=== PATIENT | female | born 1945 | race Caucasian/White ===

== ENCOUNTER → 2017-05-29 | Outpatient (CLI) | payer MEDICARE ==
[~2017-05-29] MED LIST: ALBU8.5H IH; ALPR-429 PO; AMLO2.5T74 PO; ASPI81TA94 PO; BUSP7.5T7 PO; CETI10CA8 PO; DICY20TA70 PO; DIPH-740 PO; EPIN0.3P15 IM; ESCI20TA8 PO; ESCI5TAB3 PO; FLUT50DI3 IH; IPRN ENA; LEVO50TA80 PO; LEVO50TA86 PO; MELO-207 PO; MONT10TA PO; OXYM-1 ENA; PANT20TA27 PO; PANT40TA65 PO; PRAV40TA78 PO; RANI-324 PO; TRAZ-156 PO; TRIA10.8 NS; VITA-175 PO; [UNRECOGNIZED DRUG - REMARK]
== END ==
LOC: LAB 15:15
PROVIDERS: ATTEND Surgery
DX: C44.519 Basal cell carcinoma of skin of other part of trunk (principal)
CPT/HCPCS: 88305

== ENCOUNTER → 2017-06-20 | Outpatient (CLI) | payer MEDICARE | LOC: LAB 16:46 | PROVIDERS: ATTEND Surgery | DX: C44.519 Basal cell carcinoma of skin of other part of trunk (principal) | CPT/HCPCS: 88305 ==

== ENCOUNTER → 2017-12-27 | Outpatient (CLI) | payer MEDICARE ==
[~2017-12-27] MED LIST changes: -AMLO2.5T74 PO; +AMLO2.5T76 PO; +BUPR-133 PO; +CHOL500016 PO; +MIRT7.5T2 PO; +PNEU0.5D3 IM; -RANI-324 PO; +RANI-366 PO; -TRAZ-156 PO; +TRAZ50TA34 PO; +TRIA10.8
--- NOTE | 2017-12-27 14:08 | RADIOLOGY IMAGING REPORT ---
FACILITY: [facility] PATIENT NAME: Soumya Neri : 1945 MR: [id number] V: [id number] EXAM DATE: ORDERING PHYSICIAN: TORI REES TECHNOLOGIST: Location: [facility] [place] Patient: Soumya Neri : 1945 Visit/Account:[id number] Date of Sevice: 12/27/2017 DEXA Scan Clinical history: Vitamin D deficiency. Comparison: None available. LUMBAR SPINE: The bone mineral density (BMD) measured from L1-L4 correlates with a Z-score -1.3 and a T-score of -3 .1 which is osteoporosis as defined by the World Health Organization. The corresponding risk of frac ture in the lumbar spine is 6-8 times increased compared with a young adult reference population. HIP: Bone mineral density (BMD) measured in the Left total hip region correlates with a Z-score -1.2 and a T-score of -2.8 which is osteoporosis as defined by the World Health Organization. The correspondin g risk of fracture in the hip is 8-12 times increased compared with a young adult reference populatio n. T score left femoral neck -2.9 Bone mineral density (BMD) measured in the Femoral Neck region measures 0.628 g/cm2. Impression: 1. Lumbar spine: Osteoporosis. 2. Left Hip: Osteoporosis. 3. Femoral Neck: Bone Mineral Density is 0.628 g/cm2 The next DEXA scan of this patient should include the following sites: L1-L4 and the left hip. FRAX? WHO Fracture Risk Assessment Tool link: <http://www.shef.ac.uk/FRAX/tool.jsp?locationValue=9> PLEASE NOTE: 1) The World Health Organization defines low BMD as follows: T-score Normal > -1 Osteopenia < -1 and > -2.5 Osteoporosis < -2.5 without fractures Established osteoporosis < -2.5 with fractures 2) In general, you may wish to consider: Diagnosis Treatment Follow-up DEXA Normal BMD Prevention 2-3 years Osteopenia Prevention/therapy 1-2 years Osteoporosis Therapy Yearly 3) Fracture risk estimated from the T-score is more accurate for vertebral fractures (often spontane ous) than for hip fractures. Report Dictated By: Katherine Patel MD at 12/27/2017 2:04 PM Report E-Signed By: Katherine Patel MD at 12/27/2017 2:06 PM WSN:[email or web address]
--- NOTE | 2017-12-28 10:16 | RADIOLOGY IMAGING REPORT ---
FACILITY: PATIENT NAME: LIDIA MAYES : [id number] MR: [id number] V: [id number] EXAM DATE: ORDERING PHYSICIAN: TORI REES TECHNOLOGIST: Bharti Caldwell PROCEDURE:BILATERAL DIGITAL SCREENING MAMMOGRAM WITH CAD ASSISTED INTERPRETATION & 3D TOMOSYNTHESIS COMPARISON:Prior mammograms dated 08/27/13, 08/20/12, 08/16/11 INDICATIONS:SCREENING FINDINGS: A small to moderate amount of fibroglandular tissue is seen throughout the breasts. The parenchymal pattern has remained stable allowing for difference in mammographic technique & patient positioning. There is no evidence of malignant appearing mass, malignant appearing calcification or other secondary sign of malignancy in either breast. DIAGNOSTIC CATEGORY 1--NEGATIVE. RECOMMENDATIONS: ROUTINE MAMMOGRAM AND CLINICAL EVALUATION. IMPRESSION: BIRADS 1: Negative. No significant abnormality is seen. Dictated by: Katherine Patel M.D. on 12/27/2017 at 16:13 Transcribed by: TORIBIO on 12/28/2017 at 8:28 Approved by: Katherine Patel M.D. on 12/28/2017 at 10:15 [facility]
== END ==
LOC: MAMO 00:31
PROVIDERS: ATTEND Family Medicine
DX: Z12.31 Encounter for screening mammogram for malignant neoplasm of breast (principal); M81.0 Age-related osteoporosis without current pathological fracture
CPT/HCPCS: 77063; 77067; 77080

== ENCOUNTER → 2018-10-25 | Outpatient (CLI) | payer MEDICARE ==
[~2018-10-25] MED LIST changes: -AMLO2.5T76 PO; +AMLO2.5T78 PO; +BARIUM SULFATE 340 GM POWD ONE; +LEVO5TAB28 PO; +PRAZ2CAP26 PO; +QUET25TA30 PO; -RANI-366 PO; +RANI-54 PO; -TRAZ50TA34 PO; +TRAZ50TA52 PO
--- NOTE | 2018-10-25 12:24 | RADIOLOGY IMAGING REPORT ---
FACILITY: [facility] PATIENT NAME: Soumya Neri : 1945 MR: [id number] V: [id number] EXAM DATE: ORDERING PHYSICIAN: TORI REES TECHNOLOGIST: Location: [facility] - [place] Patient: Soumya Neri : 1945 Visit/Account:[id number] Date of Sevice: 10/25/2018 Esophagram Indication: Gastroesophageal reflux. Left upper quadrant fullness. Comparison: None available Findings: The patient was given thin and thick barium to drink. Single column and air contrast views were obta ined of the esophagus. Fluoroscopy time measured 1.2 minutes with a dose area product of 140.70uGy*m 2. The esophagus is normal in caliber. No mucosal filling defect or ulceration is identified. No focal stricture. No hiatal hernia was seen. There was normal esophageal motility. With the patient lying supine, there is spontaneous gastroesophageal reflux to the upper thoracic eso phagus. IMPRESSION: 1. Gastroesophageal reflux to level of the proximal thoracic esophagus. Report Dictated By: Michael Gerber at 10/25/2018 12:11 PM Report E-Signed By: Michael Gerber at 10/25/2018 12:17 PM WSN:[email or web address]
== END ==
LOC: RAD 03:39
PROVIDERS: ATTEND Family Medicine
DX: K21.9 Gastro-esophageal reflux disease without esophagitis (principal)
CPT/HCPCS: 74220